=== PATIENT | male | born 1990 | race Caucasian/White ===

== ENCOUNTER 2017-09-28 22:45 | Emergency (ER) | payer OTHER ==
[2017-09-28 22:50] VITALS: BMI 28.1
[2017-09-28] MEDS ORDERED: LIDOCAINE HCL 2% (20ML MULTI-DOSE VIAL) NR ONE (23:53)
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
[2017-09-29] MEDS ORDERED: BACITRACIN 0.9 GM PACKET ONE (00:13)
[2017-09-29 00:19] LABS: BASOPHIL 0.5 % (0-2.0); EOSINOPHIL 1.1 % (0-4.5); MCH 32.6 pg (25.7-33.7); MCHC 34.7 g/dl (32.0-35.9); MEAN CELL VOLUME 94.1 fl (80-96); MEAN PLT VOLUME 8.2 fl (7.5-11.1); NEUTROPHILS 75.1 % (42.8-82.8); PLATELET COUNT 232 K/MM3 (134-434); RDW 13.1 % (11.9-15.9); WHITE BLOOD COUNT 11.4 K/mm3 (4.0-10.0)
--- NOTE | 2017-09-29 00:42 | PDOC ---
*Physical Exam - Vital Signs Last Vital Signs Temp Pulse Resp BP Pulse Ox 97 H 18 143/80 99 09/28/17 22:47 09/28/17 22:47 09/28/17 22:47 09/28/17 22:47 ED Treatment Course - LABORATORY CBC & Chemistry Diagram: 09/29/17 00:10 09/29/17 00:10 - ADDITIONAL ORDERS Additional order review: 09/29/17 00:10 RBC 4.58 MCV 94.1 MCHC 34.7 RDW 13.1 MPV 8.2 Neutrophils % 75.1 Lymphocytes % 17.6 Monocytes % 5.7 Eosinophils % 1.1 Basophils % 0.5 Medical Decision Making - Medical Decision Making 09/29/17 00:42 agree with care from DISTRICT LEADER Johny *DC/Admit/Observation/Transfer Diagnosis at time of Disposition: Nasal bone fractures, Fall, Laceration - Discharge Dispostion Disposition: HOME Condition at time of disposition: Stable - Prescriptions Prescriptions: Bacitracin - [Bacitracin Topical Ointment -] 1 applic TP BID PRN #1 tube PRN Reason: Wound Care Cephalexin [Keflex] 500 mg PO BID #20 capsule Sulfamethoxazole/Trimethoprim [Bactrim Ds -] 1 tab PO BID #14 tablet - Referrals Referrals: Ye Coon [Primary Care Provider] - Avery Osullivan MD [Staff Physician] - - Patient Instructions Printed Discharge Instructions: DI for Nose Fracture, DI for Laceration Repair -- Simple Additional Instructions: Follow up with Dr. Osullivan (ENT), call to schedule appointment for next week. Take medications as prescribed. You may apply cold compress to affected area as needed. Return in 5-6 days for suture removal. Apply antibiotic ointment to affected areas as prescribed. Return if any concerns for further evaluation. Print Language: [place] ISLANDER - Post Discharge Activity Forms/Work/School Notes: Back to Work
[2017-09-29 00:44] LABS: ALBUMIN 4.1 g/dl (3.4-5.0); ANION GAP 11 (8-16); BILIRUBIN,TOTAL 0.5 mg/dL (0.2-1.0); CALCIUM 8.3 mg/dL (8.5-10.1); CO2 21 mmol/L (21-32); CREATININE 1.1 mg/dL (0.7-1.3); GLUCOSE,RANDOM 118 mg/dL (74-106); SGOT/AST 58 U/L (15-37); TOT PROT 7.2 g/dl (6.4-8.2)
[2017-09-29 00:45] LABS: ALK PHOS 110 U/L (45-117); SGPT/ALT 96 U/L (12-78)
[2017-09-29] MEDS ORDERED: BACITRACIN 15 GM TUBE TOPICAL OINTMENT TP ONE (01:00)
[2017-09-29 01:03] LABS: URINE APPEARANCE CLEAR; URINE BILIRUBIN NEGATIVE (NEGATIVE); URINE BLOOD NEGATIVE (NEGATIVE); URINE COLOR LTYELLOW; URINE GLUCOSE (UA) NEGATIVE (NEGATIVE); URINE KETONE NEGATIVE (NEGATIVE); URINE NITRITE NEGATIVE (NEGATIVE); URINE PROTEIN NEGATIVE (NEGATIVE)
[2017-09-29] MEDS ORDERED: CEFAZOLIN 1 GM/D5W 1 GM/50 ML BAG ONE (01:25)
[2017-09-29 01:26] LABS: URINE MARIJUANA THC POSITIVE ng/ml (CUTOFF=50)
[2017-09-29 01:36] VITALS: BP 136/94; PULSE 86
[2017-09-29 10:54] LABS: URINE LEUK ESTERASE Negative (NEGATIVE)
== END 2017-09-29 04:51 | disposition home or self-care (01) ==
LOC: JER 22:45
PROC: 0CQ13ZZ Repair Lower Lip, Percutaneous Approach (ICD-10-PCS; principal; 2017-09-28)
PROC: 0CQ03ZZ Repair Upper Lip, Percutaneous Approach (ICD-10-PCS; 2017-09-28)
DX: S02.2XXA Fracture of nasal bones, initial encounter for closed fracture (principal); S01.511A Laceration without foreign body of lip, initial encounter; V18.0XXA Pedal cycle driver injured in noncollision transport accident in nontraffic accident, initial encounter; Y92.410 Unspecified street and highway as the place of occurrence of the external cause; Y93.55 Activity, bike riding; Y99.8 Other external cause status
CPT/HCPCS: 12014; 36415; 70450-TC; 70486-TC; 71020-TC; 72125-TC; 80053; 80307; 81003; 85025; 99282-25

== ENCOUNTER 2018-08-07 04:16 | Emergency (ER) | payer OTHER ==
[2018-08-07 04:52] VITALS: BP 170/89; PULSE 71; TEMP 97.8; BMI 27.4
[2018-08-07 05:23] LABS: BASO % 0.6 % (0-2.0); EOS % 4.5 % (0-4.5); HEMATOCRIT 46.7 % (35.4-49); HEMOGLOBIN 16.2 GM/dL (11.7-16.9); LYMPH % 24.8 % (8-40); MCH 33.2 pg (25.7-33.7); MCHC 34.6 g/dl (32.0-35.9); MEAN CELL VOLUME 95.9 fl (80-96); MEAN PLT VOLUME 7.8 fl (7.5-11.1); MONO % 7.8 % (3.8-10.2); NEUT % 62.3 % (42.8-82.8); PLATELET COUNT 233 K/MM3 (134-434); RBC 4.87 M/mm3 (4.00-5.60); RDW 12.9 % (11.9-15.9); WHITE BLOOD COUNT 8.4 K/mm3 (4.0-10.0)
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
[2018-08-07 05:56] LABS: ALBUMIN 4.2 g/dl (3.4-5.0); ALK PHOS 108 U/L (45-117); ANION GAP 5 MMOL/L (8-16); BILIRUBIN,TOTAL 0.6 mg/dL (0.2-1); BLOOD UREA NITROGEN 12 mg/dL (7-18); CALCIUM 8.6 mg/dL (8.5-10.1); CHLORIDE 109 mmol/L (98-107); CO2 27 mmol/L (21-32); CREATININE 0.8 mg/dL (0.55-1.3); GLUCOSE,RANDOM 88 mg/dL (74-106); SGOT/AST 53 U/L (15-37); SGPT/ALT 132 U/L (13-61); SODIUM 141 mmol/L (136-145); TOT PROT 7.3 g/dl (6.4-8.2)
--- NOTE | 2018-08-08 06:29 | EKG ---
Test Reason : Blood Pressure : / mmHG Vent. Rate : 066 BPM Atrial Rate : 066 BPM P-R Int : 154 ms QRS Dur : 096 ms QT Int : 386 ms P-R-T Axes : 043 051 044 degrees QTc Int : 404 ms NORMAL SINUS RHYTHM NORMAL ECG NO PREVIOUS ECGS AVAILABLE Confirmed by LIANE BARBOZA MD ([id number]) on 08/08/2018 6:29:09 AM Referred By: Confirmed By:LIANE BARBOZA MD
== END 2018-08-07 07:02 | disposition home or self-care (01) ==
LOC: JER 04:16
DX: F16.99 Hallucinogen use, unspecified with unspecified hallucinogen-induced disorder (principal)
CPT/HCPCS: 36415; 80053; 82550; 82553; 85025; 93005; 93010; 99281-25